=== PATIENT | male | born 1955 | race Caucasian/White ===

== ENCOUNTER 2020-04-19 20:43 | Inpatient (IN) | payer MEDICAID, SELFPAY ==
[~2020-04-19] VITALS: Ht 165.1 cm; Wt 88.9 kg
[2020-04-19 22:02] VITALS: Ht 165.1 cm; Wt 88.9 kg
--- NOTE | 2020-04-19 22:54 | NUR ---
PT CAME TO ED CO SOB AND COUGH X4 DAYS. PT SATURATING AT 78% ON ROOM AIR. PT PLACED ON 15L VIA NON REBREATHER. PT SATURATION INCREASED TO 94%. PT APPEAR LABORED. PT AMBULATED FROM LOBBY TO ORTHO WITH STEADY GAIT. DR. GALLEGOS MADE AWARE OF PT O2 SAT. NO S/S OF DISTRESS WHILE PT IS ON O2. PT RESTING ON GURNEY. PROVIDED URINAL FOR SAMPLE. WILL CONTINUE TO MONITOR.
--- NOTE | 2020-04-19 23:14 | NUR ---
LAB AT BEDSIDE FOR BLOOD DRAW
[2020-04-19 23:25] LABS: BASOPHIL % 0.5 % (0-2); RED CELL DISTRIBUTION WIDTH 13.6 % (11.5-14.5)
[2020-04-19 23:27] LABS: PLATELET COUNT 410 x10^3mcL (130-400)
[2020-04-19 23:32] LABS: UA SPECIFIC GRAVITY >=1.030 (1.005-1.035); microscopic required? YES; urine erythrocyte 2+ (NEGATIVE)
[2020-04-19 23:36] LABS: CALCIUM 8.7 mg/dL (8.5-10.1); CARBON DIOXIDE 23.9 mmol/L (21-32); CREATININE SERUM 2.1 mg/dL (0.7-1.3); POTASSIUM SERUM 4.4 mmol/L (3.5-5.1)
[2020-04-19 23:41] LABS: BILIRUBIN TOTAL 0.9 mg/dL (0.20-1.00); TOTAL PROTEIN, SERUM 7.6 g/dL (6.4-8.2)
[2020-04-19 23:48] LABS: ALBUMIN 2.2 g/dL (3.4-5.0)
[2020-04-20] VITALS (7 sets, daily range): BP systolic 142–167; BP diastolic 75–87
--- NOTE | 2020-04-20 | NUR ---
PT SITTING ON GURNEY IN POSITION OF COMFORT. ASSISTED PT UP IN BED. NO S/S OF DISTRESS. RESP E/U. WILL CONTINUE TO MONITOR.
[2020-04-20 00:08] LABS: C REACTIVE PROTEIN 26.6 mg/dL (<=0.9)
[2020-04-20] MEDS ORDERED: PROAIR HFA8.5 GM (00:54)
[2020-04-20] MEDS ORDERED: AZITHROMYCIN250 M1 (00:54)
[2020-04-20] MEDS ORDERED: PROMETHAZINE-D473 M1 (00:54)
[2020-04-20] MEDS ORDERED: BROMPHENIRAMIN473 M2 (00:55)
[2020-04-20] MEDS ORDERED: ATORVASTATIN CA40 M1 PO (00:55)
[2020-04-20] MEDS ORDERED: LOSARTAN POTAS100 M1 PO (00:55)
[2020-04-20] MEDS ORDERED: METFORMIN HCL1000 MG PO (00:55)
--- NOTE | 2020-04-20 01:50 | NUR ---
PT GIVEN ZOFRAN 4MG FOR VOMITING VERBAL ORDER FROM DR. GALLEGOS.
--- NOTE | 2020-04-20 02:04 | NUR ---
PT TAKEN TO CT SCAN, DAKSHA CONTINUE TO MONITOR.
--- NOTE | 2020-04-20 02:04 | NUR ---
REPORT GIVEN TO ISRAEL CONWAY TO ASSUME CARE OF PT
--- NOTE | 2020-04-20 02:05 | NUR ---
REPORT GIVEN TO ISRAEL CONWAY TO ASSUME CARE OF PT
--- NOTE | 2020-04-20 02:37 | NUR ---
ADMITTED PATIENT FROM ER TO THE FLOOR,PT CAME TO THE FLOOR VIA GUERNEY AND WAS ACCOMPANIED BY THE NURSE AND THE HOSPITAL PERSONNEL,PT WAS RECIEVED TO THE BED AND MADE COMFORTABLE IN BED WITH TELE ON IN NSR.ON INITAIL ASSESSMENT PATIENT IS AAO MALTESE SPEAKING ONLY BUT SPEAK LITTLE EGLISH,REG RESP NO SOB ON 15L NON REBREATHER MASK ON ARRIVAL TO THE FLOOR SAT 95%,HOB DIMINISHED TO IKE LOWER BASES,HOB,ABDO IS SOFT WITH ACTIVE BOWEL SOUNDS,PT CAME TO THE FLOOR WITH RICARDO WALKER,PT ORIENTED TO THE FLOOR,BATHROOM AND THE CALL LIGHT,BED WAS PUT IN THE LOW POSITION AND LOCKED,CALL LIGHT EASY REACHED AND WILL CONTINUE TO MONITOR. 0300 PT WAS REASSES BY THE RT AND WAS PUT ON 5L N/C WITH HUMIDIFIER WITH SAT 94%,PT RSETING AT THIS TIME,WILL CONTINUE TO MONITOR.
--- NOTE | 2020-04-20 02:46 | NUR ---
SPOKE WITH RT STS WILL GIVE BREATHING TREATMENT ON FLOOR
--- NOTE | 2020-04-20 02:46 | NUR ---
DR. GALLEGOS STS ITS OK TO TRANSPORT PT TO FLOOR W/OUT CT RESULTS.
--- NOTE | 2020-04-20 02:47 | NUR ---
PT TRANSFERRED TO ED ACCOMPANIED BY NURSE AND EMT. NO S/S OF DISTRESS. RESP E/U. RN AT BEDSIDE TO ASSUME CARE OF PT. IV SITES PATENT. NO S/S OF INFILTRATION .
[2020-04-20 02:57] LABS: CHOLESTEROL/HDL RATIO 2.9
--- NOTE | 2020-04-20 03:45 | NUR ---
call to dr munroe to notify flores of patient bp of 167/79 waiting to be call back.will kenna to monitor.
--- NOTE | 2020-04-20 03:59 | NUR ---
DR POLO CALLED SAYS ITS OKAY TO GIVE ITS PO BP MEDS IN AM AND ALSO START THE HEPARIN SQ IN AM,WILL ENDORSED IN AM,PT SLEEPING AT THIS TIME,WILL CONTINUE TO MONITOR.
--- NOTE | 2020-04-20 06:32 | NUR ---
BP 169/79 HYDARLAZINE 10 MG IV GIVEN ORDER AND WILL CONTINUE TO MONITOR,PT HAD AESTING NIGHT WILL CONTINUE TO MONITOR.
--- NOTE | 2020-04-20 07:25 | NUR ---
PT RESTING AT THIS TIME,V/S STABLE,HL SITE PATENT AND INTACT,KEPT CLEAN AND DRY TO TOUCH,CALL LIGHT EASY REACHED AND WILL CONTINUE TO MONITOR.
[2020-04-20 07:45] LABS: CALCIUM 7.9 mg/dL (8.5-10.1); CARBON DIOXIDE 22.1 mmol/L (21-32); CREATININE SERUM 1.8 mg/dL (0.7-1.3); PHOSPHOROUS 3.5 mg/dL (2.5-4.9); POTASSIUM SERUM 3.8 mmol/L (3.5-5.1)
[2020-04-20 08:05] LABS: C REACTIVE PROTEIN 24.7 mg/dL (<=0.9)
--- NOTE | 2020-04-20 09:18 | NUR ---
PT HAS BLOOD TINGE WHEN HE LOW HIS NOSE AND BLACK TARRY LOOSE STOOLS,OB,KEPT CLEAN AND DRY TOUCH AND WILL CONTINUE TO MONITOR.
--- NOTE | 2020-04-20 09:25 | NUR ---
DECADRON 6 MG IV GIVEN ORDER AND WILL CONTINUE TO MONITOR.
--- NOTE | 2020-04-20 10:04 | NUR ---
PT RESTING AT THIS TIE,WILL CONTINUE TO MONITOR.
[2020-04-20 10:25] LABS: BASOPHIL % 0.2 % (0-2); PLATELET COUNT 360 x10^3mcL (130-400); RED CELL DISTRIBUTION WIDTH 13.6 % (11.5-14.5)
--- NOTE | 2020-04-20 11:00 | NUR ---
RECIEVED PT FROM NIGHT NURSE AT 1100. PT A/O X4 WITH NO TRUJILLO OR DIZZINESS. TELE#20 CONNECTED TO PT, DENIES CP OR PRESSURE. NO SOB NOTED, PT FOUND ON 5LPM O2 NC WITH HUMIDIFIER. IV,S CDI AND PATENT. SAFETY PRECAUTIONS IN PLACE, CALL LIGHT WITHIN REACH, WILL MONITOR.
--- NOTE | 2020-04-20 11:45 | NUR ---
ASSUMED CARE OF PATIENT FROM ALEJANDRA. PATIENT IS AWAKE, ALERT, ORIENTED X4. PATIENT SITTING ON THE EDGE OF THE BED. O2 -5L NASAL CANULA WITH HUMIDIFIER. NO DISTRESS NOTED. PATIENT DENIES PAIN OR OTHER DISCOMFORT. CALL LIGHT WITHIN REACH. SAFETY PRECAUTIONS IN PLACE. WILL CONTINUE TO MONITOR PATIENT AND MAINTAIN SAFETY.
--- NOTE | 2020-04-20 14:00 | NUR ---
PT STABLE WITH NO C/O PAIN OR DISTRESS. CALL LIGHT WITHIN REACH, WILL MONITOR.
--- NOTE | 2020-04-20 14:15 | NUR ---
Discount pharmacy card and list to low cost medical clinics given to Naida WOOD and she will hand to patient.
--- NOTE | 2020-04-20 17:53 | NUR ---
PT RESTING IN BED WITH NO DISTRESS. A/O X4 WITH NO TRUJILLO OR DIZZINESS. TELE#20 CONNECTED TO PT, DENIES CP OR PRESSURE. NO SOB NOTED, PT ON 5LPM O2 NC WITH HUMIDIFIER. RAC/LAC IV'S CDI AND PATENT. SAFETY PRECAUTIONS IN PLACE, CALL LIGHT WITHIN REACH, WILL ENDORSE CARE TO NIGHT NURSE.
--- NOTE | 2020-04-20 19:54 | NUR ---
PT RECIEVED AAO REG RESP NO SOB ON 5L N/C SAT 95%,CRACKLES TO IKE LOWER BASES,ABDO IS SOFT WITH ACTIVE BOWEL SOUNDS,PT HAS A HL TO THE LT AC SITE PATENT AND INTACT,CALL LIGHT EASY REACHED AND WILL CONTINUE TO MONITOR.
[2020-04-21] VITALS (7 sets, daily range): BP systolic 136–159; BP diastolic 65–85
--- NOTE | 2020-04-21 00:44 | NUR ---
PT REASSESS ON OXYGEN OF 5L N/C SAT 100%,OXYGEN WAS REDUCED TO 3L N/C AND WILL REASSESS WITH TIME NO SOB,WILL CONTINUE TO MONITOR.
--- NOTE | 2020-04-21 01:03 | NUR ---
HYDRALAZINE 10 MG IV GIVEN ORDER WITH BP OF 159/81,SAT ON 3L WAS 100%,OXYGEN WAS REDUCED TO 2L SAT 94%,WILL CONTINUE TO MONITOR.
--- NOTE | 2020-04-21 02:29 | NUR ---
2L N/C SAT 97%,HOB,WILL CONITNUE TO MONITOR.
--- NOTE | 2020-04-21 06:31 | NUR ---
PT HAD A RESTING NIGHT NO CHNANGE AT THIS TIME,PT ON 2L N/C SAT 95%,CALL LIGHT EASY REACHED AND WILL CONITNUE TO MONITOR.
[2020-04-21 07:23] LABS: BASOPHIL % 0.1 % (0-2); PLATELET COUNT 432 x10^3mcL (130-400)
[2020-04-21 07:31] LABS: BILIRUBIN TOTAL 0.47 mg/dL (0.20-1.00); CARBON DIOXIDE 20.3 mmol/L (21-32); CREATININE SERUM 1.7 mg/dL (0.7-1.3); MAGNESIUM 2.5 mg/dL (1.8-2.4); PHOSPHOROUS 3.6 mg/dL (2.5-4.9); POTASSIUM SERUM 4.6 mmol/L (3.5-5.1); TOTAL PROTEIN, SERUM 6.9 g/dL (6.4-8.2)
[2020-04-21 07:32] LABS: ALBUMIN 1.9 g/dL (3.4-5.0)
--- NOTE | 2020-04-21 07:35 | NUR ---
RECEIVED PT RESTING IN BED. NO ACUTE DISTRESS. AAOX4. RESP EVEN AND UNLABORED ON 2L NC. DRY COUGH. DENIES CP OR PRESSURE. IV WITH NO REDNESS OR SWELLING. PT'S WALKER IN THE ROOM. AMBULATED TO BATHROOM WITHOUT DEVICE, GAIT SLOW BUT STEADY. DROPLET/CONTACT ISOLATION. BED IN LOW POSITION, CALL LIGHT WITHIN REACH. WILL CONTINUE TO MONITOR.
[2020-04-21 07:41] LABS: C REACTIVE PROTEIN 26.6 mg/dL (<=0.9)
--- NOTE | 2020-04-21 12:16 | NUR ---
PT RESTING IN BED. NO ACUTE DISTRESS. AAOX4. RESP EVEN AND UNLABORED ON 2L NC. NO C/O PAIN. IV WITH NO REDNESS OR SWELLING. DROPLET/CONTACT ISOLATION. CALL LIGHT WITHIN REACH. WILL CONTINUE TO MONITOR.
--- NOTE | 2020-04-21 18:29 | NUR ---
PT RESTING IN BED. NO ACUTE DISTRESS. RESP EVEN AND UNLABORED ON 2L NC. REPORTS BM THIS SHIFT. IV TO LAC LEAKING, DC'D WITH CATHETER INTACT. IV TO RAC WITH NO REDNESS OR SWELLING. BED IN LOW POSITION, CALL LIGHT WITHIN REACH. DROPLET/CONTACT ISOLATION. WILL ENDORSE TO ONCOMING SHIFT.
--- NOTE | 2020-04-21 20:00 | NUR ---
PATIENT RESTING IN BED, ALERT, ORIENTED X4, GRENADIAN SPEAKING. PRESENCE OF DRY COUGH, RESPIRATION EVEN AND UNLABORED, ON O2 2L PER NASAL CANNULA, ON CONTACT AND DROPLET PRECAUTION. NO GI DISCOMFORT, LBM 7/1. VOIDING FREELY WITHOUT DIFFICULTY, USES URINAL. USES WALKER. SKIN DRY AND INTACT. ON TELE #20. WILL CONTINUE TO MONITOR. WILL CONTINUE TO MONITOR.
[2020-04-22 05:19] VITALS: BP 149/95
--- NOTE | 2020-04-22 06:05 | NUR ---
PATIENT RESTING IN BED. RESPIRATION EVEN AND UNLABORED, ON OXYMIZER AT 10 L, ON AIRBORNE PRECAUTION. IV SITE NO SIGN OF INFILTRATION. ASSISTED WITH NEEDS. SAFETY OBSERVED. PLACED BED IN THE LOWEST POSITION. PLACED CALL LIGHT WITHIN REACH AT ALL TIMES.
[2020-04-22 07:24] LABS: BILIRUBIN TOTAL 0.3 mg/dL (0.20-1.00); C REACTIVE PROTEIN 8.8 mg/dL (<=0.9); CALCIUM 8.5 mg/dL (8.5-10.1); CARBON DIOXIDE 20.2 mmol/L (21-32); CREATININE SERUM 1.6 mg/dL (0.7-1.3); POTASSIUM SERUM 4.3 mmol/L (3.5-5.1); TOTAL PROTEIN, SERUM 6.8 g/dL (6.4-8.2)
[2020-04-22 07:30] LABS: ALBUMIN 1.9 g/dL (3.4-5.0)
--- NOTE | 2020-04-22 07:34 | NUR ---
RECEIVED PT IN NO ACUTE DISTRESS. RESTING IN BED. AAOX4. RESP EVEN AND UNLABORED ON 10L OXYMIZER. IV WITH NO REDNESS OR SWELLING. PT'S WALKER IN THE ROOM. DROPLET/CONTACT ISOLATION. BED IN LOW POSITION, CALL LIGHT WITHIN REACH. WILL CONTINUE TO MONITOR.
[2020-04-22 07:54] LABS: BASOPHIL % 0.9 % (0-2); PLATELET COUNT 486 x10^3mcL (130-400); RED CELL DISTRIBUTION WIDTH 13.6 % (11.5-14.5)
[2020-04-22 08:26] VITALS: BP 160/80
[2020-04-22 12:22] VITALS: BP 164/87
--- NOTE | 2020-04-22 12:52 | NUR ---
PT SITTING UP ON THE SIDE OF THE BED. NO ACUTE DISTRESS. RESP EVEN AND UNLABORED ON 10L OXYMIZER. IV WITH NO REDNESS OR SWELLING. IV DRESSING CHANGED, C/D/I. DROPLET/CONTACT ISOLATION. CALL LIGHT WITHIN REACH. WILL CONTINUE TO MONITOR.
[2020-04-22 17:11] VITALS: BP 150/81
--- NOTE | 2020-04-22 17:42 | NUR ---
DR. HUGGINS AWARE OF PT'S POSITIVE COVID-19 RESULTS. PT ON DROPLET/CONTACT ISOLATION. PT INSTRUCTED TO LAY ON HIS STOMACH. PT LAYING ON HIS STOMACH AT THIS TIME, O2 SAT 95-56% ON 10L OXYMIZER. PT ALSO INSTRUCTED TO USE INCENTIVE SPIROMETER 10X/HR WHILE AWAKE, PT RETURNED DEMONSTRATION. CALL LIGHT WITHIN REACH. WILL CONTINUE TO MONITOR.
--- NOTE | 2020-04-22 18:50 | NUR ---
PT RESTING IN BED. NO ACUTE DISTRESS. AAOX4. RESP EVEN AND UNLABORED ON 10L OXYMIZER. O2 SAT 96-98%. ENCOURAGED PT TO LAY PRONE 1 HOUR AFTER EATING DINNER, PT VERBALIZED UNDERSTANDING. REMINDED PT TO USE INCENTIVE SPIROMETER 10X/HR WHILE AWAKE. IV WITH NO REDNESS OR SWELLING. DROPLET/CONTACT ISOLATION. BED IN LOW POSITION, CALL LIGHT WITHIN REACH. WILL ENDORSE TO ONCOMING SHIFT.
[2020-04-22 19:30] VITALS: BP 162/107
--- NOTE | 2020-04-22 19:30 | NUR ---
RECIEVED PT FROM AM NURSE. PT AAOX4, ABLE TO FOLLOW COMMANDS AND MAKE NEEDS KNONW. TELE#20 READING SR, DENIES CP/PRESSURE AT THIS TIME. PALPABLE PULSES TO ALL EXTREMETIES. NO EDEMA NOTED. LUNG SOUNDS DIMINISHED, BREATHING EVEN AND UNLABORED. PT C/O SOB ON EXERTION AND DRY COUGH. PT ON 10L OXYMIZER, O2 SAT 92%. ABD SOFT AND NONDISTENDED, ACTIVE BS X4 QUAD. DENIES N/V/D. GENERALIZED WEAKNESS. AMBUALTORY WITH WALKER. IV TO RAC PATENT AND INTACT. SITE WNL. NO AUCTE DISTRESS NOTED. ENCOURAGE PT PRONE POSITION. PT STATES UNDERTANDING AND STATES HE IS BEING ON PRONE PROSITION. BED AT LOWEST SETTING. SIDE RAILS X2 UP. CALL LIGHT WITHING REACH. WILL CONT TO MONITOR.
[2020-04-22 23:00] VITALS: BP 156/82
--- NOTE | 2020-04-22 23:00 | NUR ---
PT BP 162/107, HYDRALAZINE IVP GIVEN PER DEC. BP RECHECKED. CURRENT BP 156/82. PT RESTING COMFORTABLY IN NO ACUTE DISTRESS. WILL CONT TO MONITOR.
--- NOTE | 2020-04-23 00:10 | NUR ---
PT RESTING COMFORTABLY IN BED, BREATHING EVEN AND UNLABORED ON 10L OXYMIZER. PT EASILY AROUSABLE TO VERBAL STIMULI. NO ACUTE DISTRESS NOTED. SAFETY PRECAUTIONS IN PLACE. CALL LIGHT WITHING REACH. WILL CONT TO MONITOR.
[2020-04-23 06:28] VITALS: BP 172/85
--- NOTE | 2020-04-23 06:35 | NUR ---
PT SLEPT AT INTERVALS THROUGHOUT THE NIGHT, BREATHING EVEN AND UNLABORED ON 10L OXYMIZER. O2 SAT 92%. PT BP 172/85, HYDRALAZINE IVP GIVEN. PT TOLERATED WELL. WILL REASSESS BP. NO OTHER SIGNIFICANT CHANE DURING SHIFT. ALL NEEDS ASSESSED AND ATTENDED TO. WILL CONT TO MONITOR.
[2020-04-23 06:56] VITALS: BP 157/67
--- NOTE | 2020-04-23 06:56 | NUR ---
CURRENT BP 157/67, NO ACUTE DISTRESS NOTED. SAFETY PRECAUTIONS IN PLACE. CALL LIGHT WITHING REACH. WILL CONT TO MONITOR AND ENDORSE CARE TO AM NURSE.
[2020-04-23 07:28] LABS: RED CELL DISTRIBUTION WIDTH 13.6 % (11.5-14.5)
[2020-04-23 08:02] LABS: C REACTIVE PROTEIN 5.6 mg/dL (<=0.9); CALCIUM 8.9 mg/dL (8.5-10.1); CARBON DIOXIDE 23.4 mmol/L (21-32); CREATININE SERUM 1.5 mg/dL (0.7-1.3); MAGNESIUM 2.1 mg/dL (1.8-2.4); PHOSPHOROUS 3.2 mg/dL (2.5-4.9); POTASSIUM SERUM 4.5 mmol/L (3.5-5.1)
[2020-04-23 08:31] LABS: BASOPHIL % 0 % (0-2)
[2020-04-23 08:32] LABS: PLATELET COUNT 502 x10^3mcL (130-400)
[2020-04-23 09:38] VITALS: BP 157/84
--- NOTE | 2020-04-23 09:55 | NUR ---
RECEIVED PT FROM NIGHT NURSE. HE APPEARS COMFORTABLE AND IN NO RESPIRATORY DISTRESS. 98% ON 10L OXYMIZER. SAFETY PRECAUTIONS IN PLACE. WILL CONTINUE TO MONITOR.
[2020-04-23 12:29] VITALS: BP 151/78
[2020-04-23 17:20] VITALS: BP 123/74
--- NOTE | 2020-04-23 17:36 | NUR ---
PATROL SERGEANT SUGGESTED TITRATING DOWN 02 LEVEL TO MAINTAIN ABOVE 93%. DECREASED O2 FROM 10L TO 8L AND PT DID NOT TOLERATE WELL. DESAT TO 89%. RESUMED O2 LEVEL AT 10L/MIN.
--- NOTE | 2020-04-23 19:41 | NUR ---
PT HAS MOSTLY STAYED IN BED THROUGHOUT THE DAY SLEEPING, BUT IS AMBULATORY WITH A WALKER. VS HAVE REMAINED STABLE. STILL PRESENTS WITH DRY COUGH AND SAO2 93% ON 10L OXYMIZER. PER PREVIOUS SHIFT BP WAS HIGH, HAS REMAINED <160 SBP, CURRENTLY 123/74. PRN HYDRALAZINE NOT GIVEN. NO ACUTE DISTRESS NOTED. SAFETY PRECAUTIONS IN PLACE. ENDORSED TO NIGHT NURSE.
[2020-04-23 20:10] VITALS: BP 145/83
--- NOTE | 2020-04-23 20:30 | NUR ---
PT ENSORSED. AXOX4 NO S/S OF DISTRES OR DISCOMFORT. PT ON 10 L OXYMIZER BREATHING EVEN AND UNLABORED. PT STATES HE HAS SOB WITH EXERTION. SPO2 95% IV PATENT C/D/I N INFILTRATION. SKIN WARM AND DRY. TELE 2 SR NO CP OR PALIPITATIONS. BOWEL SOUND PRESENT, SOFT ROUND NON TENDER. MODERATE PEDAL AND RADIAL PULSES. DENIES PAIN. CALM AND COOPERATIVE.
--- NOTE | 2020-04-24 00:56 | NUR ---
PT RESTING EYES CLOSED. NO S/S OF DISTRESS OR DISCOMFORT. PT BREATHING EVEN ON 10L OXYMIER SPO2 93% RAILS UP X2, BED IN LOW POSITION AND CALL LIGHT IS WITHIN REACH. TELE 20 SR.
--- NOTE | 2020-04-24 06:48 | NUR ---
PT RESTING. EYES OPEN. NO S/S OF DISTRESS OR DISCOMFORT. PATIENT BREATHING EVEN ON10L OXYMIZER. SPO2 95% PT SLEEPING PRONE POSITION THROUGH THE NIGHT. NO C/O CP OR PALPITATIONS. V/S STABLE. IV PATENT C/D/I NO INFILTRATION. SKIN WARM AND DRY.
[2020-04-24 07:58] LABS: C REACTIVE PROTEIN 7.7 mg/dL (<=0.9); CALCIUM 8.9 mg/dL (8.5-10.1); CARBON DIOXIDE 22.8 mmol/L (21-32); CREATININE SERUM 1.5 mg/dL (0.7-1.3); POTASSIUM SERUM 4.2 mmol/L (3.5-5.1)
[2020-04-24 08:56] LABS: BASOPHIL % 0 % (0-2); RED CELL DISTRIBUTION WIDTH 13.9 % (11.5-14.5)
[2020-04-24 09:24] VITALS: BP 176/92
--- NOTE | 2020-04-24 09:37 | NUR ---
FOUND PT SITTING ON SIDE OF BED. SAO2 HAD DECREASED TO 78%. HE HAD JUST RETURNED FROM THE BATHROOM AND WAS ALSO EATING. HE WAS INSTRUCTED TO RETURN TO LOW HUBER'S AND TAKE DEEP BREATHS. HE RETURNED TO 95% AND STILL ON 10L OXYMIZER. PT HAS A PRODUCTIVE COUGH. SAFETY PRECAUTIONS IN PLACE. INSTRUCTED TO USE CALL LIGHT AT BEDSIDE FOR ANY NEEDS. WILL CONTINUE TO MONITOR.
[2020-04-24 10:17] LABS: PLATELET COUNT 505 x10^3mcL (130-400)
[2020-04-24 13:44] VITALS: BP 135/68
--- NOTE | 2020-04-24 13:55 | NUR ---
PT WAS HYPERTENSIVE AT 176/92. GAVE HYDRALAZINE ORDERED PRN @1121. WITHIN 20 MIN BP CAME DOWN TO 157/72. NOW UNDER CONTROL AT 135/68. WILL CONTINUE TO MONITOR.
--- NOTE | 2020-04-24 18:31 | NUR ---
PT WAS TITRATED DOWN TO 8L ON OXYMIZER BY PIG STICKER. PT STILL HAS A POOR TOLERANCE FOR ACTIVITY, WITH DESATS TO 78% ON EXERTION. DID NOT TITRATE FURTHER DURING SHIFT. PT IS AMBULATORY WITH WALKER WITH SOME MILD WEAKNESS. USES URINAL TO VOID. CURRENT BP IS 139/80. DENIES PAIN AND IS RESTING CONFORTABLY. WILL ENDORSE TO NIGHT NURSE.
[2020-04-24 18:33] VITALS: BP 139/80
--- NOTE | 2020-04-24 19:45 | NUR ---
RECEIEVED PT FROM DAY NURSE. AXOX4. 8L OXYMIZER BREATHING EVENLY SPO2 96% PT C/O SOB WITH AMBULATION BUT ABLE TO CATCH HIS BREATH. PT ENCOURAGED TO USE THE IS. RAC IV C/D/I NO INFILTRATION. TELE # 20 SR. SKIN WARM DRY AND INTACT. MODERATE RADIAL AND PEDAL PULSES. VOIDS FREELY, BRP. PT IS CALM AND COOPERATIVE WITH CARE. WILL CONTINUE TO MONITOR PATIENT AND OFFER SUPPORT.
[2020-04-24 20:55] VITALS: BP 137/76
--- NOTE | 2020-04-25 00:45 | NUR ---
PT RESTING, EYES CLOSED, BREATHING EVEN, UNLABORED ON 8 L OXYMIZER SPO2 98% TELE 30, NSR AT THIS TIME. BED IN LOW POSITION, RAILS UPX2, CALL LIGHT WITHIN REACH.
[2020-04-25 05:55] VITALS: BP 155/82
--- NOTE | 2020-04-25 06:29 | NUR ---
PT RESTING EYES CLOSED. BREATHING EVEN AND UNLABORED ON 8L OXYMIZER SPO2 98% PRONE POSITION. NO S/S OF DISTRESS OR DISCOMFORT. BS 103. VOIDING FREELY IN URINAL. AMBULATES TO RESTROOM, C/O SOB BUT ABLE TO RECOVER. BED IN LOW POSITION, RAILS UPX2 AND CALL LIGHT WITHIN REACH.
[2020-04-25 09:18] LABS: BILIRUBIN TOTAL 0.4 mg/dL (0.20-1.00); CALCIUM 8.9 mg/dL (8.5-10.1); CARBON DIOXIDE 24.8 mmol/L (21-32); CREATININE SERUM 1.5 mg/dL (0.7-1.3); MAGNESIUM 2.2 mg/dL (1.8-2.4); PHOSPHOROUS 4.6 mg/dL (2.5-4.9); POTASSIUM SERUM 4.4 mmol/L (3.5-5.1); TOTAL PROTEIN, SERUM 6.3 g/dL (6.4-8.2)
[2020-04-25 09:22] LABS: ALBUMIN 1.9 g/dL (3.4-5.0)
[2020-04-25 09:31] VITALS: BP 142/65
--- NOTE | 2020-04-25 09:32 | NUR ---
RECEIVED PT FROM NIGHT NURSE. FOUND LAYING IN BED, APPEARS COMFORTABLE. AAOX4. DENIES PAIN. PT SOB WITH LS DIMINISHED BILAT. TACHYPNEIC AND SHALLOW BREATH. DRY COUGH PRESENT WITH DEEPER BREATHS. NO ACUTE RESPIRATORY DISTRESS. INSTRUCTED TO USE CALL LIGHT FOR ANY NEEDS. SAFETY PRECAUTIONS IN PLACE. WILL CONTINUE TO MONITOR.
[2020-04-25 10:35] LABS: BASOPHIL % 0 % (0-2); PLATELET COUNT 478 x10^3mcL (130-400); RED CELL DISTRIBUTION WIDTH 13.8 % (11.5-14.5)
[2020-04-25 13:51] VITALS: BP 130/64
[2020-04-25 17:20] VITALS: BP 146/89
--- NOTE | 2020-04-25 19:16 | NUR ---
PT OBSERVED RESTING COMFORTABLY IN BED, DENIES PAIN. STILL ON 8L OXYMIZER SAO2 96%. PT AMBULATORY BUT USES URINAL MOSTLY FOR VOIDING. USES WALKER. APPETITE HAS INCREASED THIS SHIFT AND HE IS TOLERATING CURRENT DIET WELL. SAFETY PRECAUTIONS IN PLACE. CALL LIGHT AT BEDSIDE. WILL ENDORSE TO NIGHT NURSE.
--- NOTE | 2020-04-25 19:45 | NUR ---
PT ENDORSED BY DAY RN. AXOX4. BREATHING EVEN AND UNLABORED 8L OXYMIZER SPO2 96% NO S/S OF DISTRESS OR DISCOMFORT. LUNGS ARE CTA. GENERALIZED WEAKNESS. RAC 20G SL NO S/S OF IFILTRATION. TELE 20 SR. NO CP. SKIM WARM AND DRY. MODERATE PEDAL AND RADIAL PULSES. VOIDS FREELY IN URINAL. COVID 19+ ISO CONTACT AND DROPLET PRECAUTIONS. BED IN LOW POSITION, RAILS UP X2. CALL LIGHT WITHIN REACH.
[2020-04-25 21:29] VITALS: BP 145/81
--- NOTE | 2020-04-26 01:02 | NUR ---
PT RESTING, EYES OPEN. BREATHING EVEN, UNLABORED 8L OXYMIZER 95% SPO2. NO S/S OF DISTRESS OR DISCOMFORT. TELE 20 NSR. BED IN LOW POSITION, SIDE RAILS UP X2. CALL LIGHT WITHIN REACH.
[2020-04-26 05:59] VITALS: BP 150/72
--- NOTE | 2020-04-26 06:18 | NUR ---
PT RESTING WITH EYES CLOSED. NO S/S OF DISTRESS OR DISCOMFORT. BREATHING EVEN ON 8L OXYMIZER SPO2 96%. IV PATENT, C/D/I NO S/S OF INFILTRATION. TELE 20 NSR NO CP. VOIDING FREELY. BED IN LOW POSITION. SIDE RAILS UPX2, CALL LIGHT WITHIN REACH. DENIES PAIN.
--- NOTE | 2020-04-26 08:00 | NUR ---
PT RECEIVED FROM PM NURSE. PT AWAKE AND RESTING COMFORTABLY AT THIS TIME. NO FACIAL DISTRESS OR SOB NOTED. MONGOLIAN SPEAKER. PT IS A/OX4. LUNG SOUNDS CTA BUT DIMINISHED BLL. BREATHING E/U ON 8L OXYMIZER. TELE #20. NSR. DENIES CP/PRESSURE. PULSES EVEN AND PALPABLE. NO EDEMA NOTED. ACTIVE BS X4. ABD SOFT AND ROUND. LBM 04/24/20. VOIDS FREELY. BRP. GENERALIZED WEAKNESS NOTED BUT IS AMBULATORY. SKIN INTACT. NO C/O PAIN AT THIS TIME. IV ON RAC. SL. INTACT AND PATENT. NO SIGNS OF INFILTRATION. BED AT THE LOWEST POSITION. CALL LIGHT WITHIN REACH. WILL CONTINUE TO MONITOR.
[2020-04-26 09:04] VITALS: BP 164/87
[2020-04-26 10:42] LABS: BASOPHIL % 0.1 % (0-2); RED CELL DISTRIBUTION WIDTH 13.8 % (11.5-14.5)
[2020-04-26 10:45] LABS: PLATELET COUNT 481 x10^3mcL (130-400)
[2020-04-26 11:25] VITALS: BP 164/87
[2020-04-26 11:58] LABS: CALCIUM 8.8 mg/dL (8.5-10.1); CARBON DIOXIDE 21.8 mmol/L (21-32); CREATININE SERUM 1.5 mg/dL (0.7-1.3); MAGNESIUM 2.1 mg/dL (1.8-2.4); PHOSPHOROUS 5.2 mg/dL (2.5-4.9); POTASSIUM SERUM 5.5 mmol/L (3.5-5.1)
[2020-04-26 13:19] VITALS: BP 142/77
--- NOTE | 2020-04-26 15:41 | NUR ---
1. Recommend continue CCHO diet as tolerate 2. Recommend glucerna TID for additional 660kcal and 30g protein. 3. Recommend encourage PO intake
--- NOTE | 2020-04-26 15:41 | NUR ---
Initial Nutrition Assessment: 217B CINDY HANNON 64M MR Dx: viral PNA, suspected COVID PMHx: DM, HTN, and hyperlipidemia PSHx: none noted Labs: (04/25) BUN 34H, Cr 1.5H, AST 53H, ALT 79H, H/H 12.7/38L Meds: Decadron, Lantus, Lipitor, Lovenox, Norvasc PRN meds: D50%, Humulin, Hydralazine, Tylenol, Ventolin, Zofran Diet: [facility] PO intake since admission: 30-80% x 16 meals with average PO intake of 56% Ht: 165.1cm/65in Wt: 88.904kg/196lbs BMI: 32.6 Bed scale: unknown IBW: 61.82kg/136lbs %IBW: 143.82% ABW: 69 UBW: unknown Age: 64 Food Allergies: unknown Edema: none noted Last BM: 04/24 Skin: intact Gio: 20 Per H and P (04/20), This patient is a 64-year-old Male with a history of diabetes, hypertension, and hyperlipidemia came in to the emergency department with c/o fever, cough, headache, shortness of breath for past 4 days. Patient mentioned his cough is nonproductive and has chest discomfort when he coughs. When patient came in to the ER, he was Hypoxic with O2sat 78% on room air. Placed on 15L via non- rebreather and his saturation improved to 97%. No known ill contacts or any recent travel. Patient denies chills, sore throat, abdominal pain, nausea, vomiting, diarrhea, or other medical complaints. Patient is complaint with his medications for HTN and DM. Pt was admitted with dx: acute respiratory failure and sepsis, Vasomotor nephropathy, h/o HLD, DM, HTN, milk malnutrition, DVT RD Note (04/26) Per progress note (04/26), pt was being weaned off oxygen per pulmonology recommendation. Pt was in isolation. Per pt's primary RN, pt had fair appetite and finished 100% of her breakfast today. RN also denied GI distress and chewing/swallowing difficulty. Pt had average PO intake of 56% since admission. Pt's diet provided 958kcal and 58g protein meeting 46% of estimated kcal needs and 56% of estimated protein needs. Problem with: N/V/D/C: no per RN Problems with: Chewing: Swallowing: No per RN Current appetite: good per RN Recent wt change: unknown %wt change: unknown Height: unknown Vitamin/Supplement use: unknown Special diet at home: unknown Physical activity: unknown Nutrition education given (specify specific nutrition education and handout given): written education "Type 2 Diabetes Nutrition Therapy" in Sami was provided to pt via RN. Food-drug interactions? Education given? Written education "vitamin K and medication" was provided to pt via RN. Estimated Nutritional Needs Based on adjusted body weight (69kg) Energy: 6049-0659 kcal/day (30-35 kcal/kg for sepsis) Protein: 103-138 g/day (1.5-2 g/kg for sepsis) Fluid: 2321-7497 mL/day (1 mL/kcal) Nutrition Diagnosis: 1. Inadequate energy and protein intake r/t poor PO intake a/e/b pt average PO intake of 56% meeting 46% of estimated kcal needs and 56% of estimated protein needs. 2. Increased energy and protein needs r/t hypermetabolic state a/e/b pt has sepsis. Intervention 1. Recommend continue CCHO diet as tolerate 2. Recommend glucerna TID for additional 660kcal and 30g protein. 3. Recommend encourage PO intake Monitor/Evaluate Goal: PO intake at least 75% of estimated needs Monitor: PO intake, Labs, GI function, Body weight F/U in 3-5 days as moderate risk 04/29-
[2020-04-26 18:31] VITALS: BP 132/70
--- NOTE | 2020-04-26 19:25 | NUR ---
ENDORSED CARE TO PM NURSE FOR CONTINUTY OF CARE. ALL QUESTIONS/CONCERNS ADDRESSED
--- NOTE | 2020-04-26 19:53 | NUR ---
PT RESTING IN BED, ALERT AND ORIENTED, DENIES HEADACHE OR DIZZINESS, MOSTLY MACEDONIAN SPEAKING, BREATHING EVEN AND UNLABORED WHILE RESTING IN BED, LUNG SOUNDS DIMINISHED, ON OXYMIZER 8L, SOB ON EXERTION, ON TELE#20 NSR, DENIES CHEST PAIN, SL, ABD SOFT AND FLAT WITH ACTIVE BS, NO BM AT THIS TIME, VOIDING FREELY, NO DISTRESS NOTED, WILL KEEP TO MONITOR.
[2020-04-26 22:01] VITALS: BP 152/86
--- NOTE | 2020-04-27 05:45 | NUR ---
PT ASLEEP BUT EASILY AROUSABLE, SLEPT MOST OF NIGHT, MORNING BLODD SUGAR:175 MG/DL WITH RISS 3 UNITS, ON OXYMIZER 8L TO MAINTAIN SPO2 > 90%, NO DISTRESS NOTED, WILL KEEP TO MONITOR.
[2020-04-27 06:06] VITALS: BP 151/67
--- NOTE | 2020-04-27 07:10 | NUR ---
RECEIVED REPORT FROM NIGHT RN Pt LYING IN BED A&O X4 SUDANESE SPEAKING DENIES AND PAIN OR SOB AT THIS TIME. ON TELE 20 DENIES ANY CHEST PAIN OR PRESSURE. ON 8L OXYMIZER AT 95% PT TOLERATING WELL. WALKER AT BEDSIDE Pt AMBULATES WELL DENIES FATIGUE. IV ON RAC C/D/I. ALL NEEDS ATTENDED TO AT THIS TIME. BED IN LOWEST POSITION CALL LIGHT WITHIN REACH. WILL CONTINUE TO MONITOR.
[2020-04-27 08:41] VITALS: BP 141/77
[2020-04-27 09:33] LABS: BASOPHIL % 0 % (0-2); PLATELET COUNT 491 x10^3mcL (130-400); RED CELL DISTRIBUTION WIDTH 13.6 % (11.5-14.5)
[2020-04-27 09:35] LABS: C REACTIVE PROTEIN 3.6 mg/dL (<=0.9); CALCIUM 8.7 mg/dL (8.5-10.1); CREATININE SERUM 1.5 mg/dL (0.7-1.3); POTASSIUM SERUM 4.3 mmol/L (3.5-5.1)
--- NOTE | 2020-04-27 10:45 | NUR ---
SP02 88% Pt SITTING UP IN BED DENIES ANY SOB CHEST RISE EQUAL AND UNLABORED . ADBISED TO LAY PRONE INCREASED OXYMIZER TO 12L PER CHARGE NURSE Pt SP02 90% TOLAERATING WELL. NO S/S OF ANY SOB. ALL NEEDS ATTENDED TO
[2020-04-27 11:55] VITALS: BP 145/82
--- NOTE | 2020-04-27 12:30 | NUR ---
Pt ALFONZO PRONE 02 AT 97 % DECREASED OXYMIZER TO 10L Pt TOLERATING WELL DENIES ANY SOB AT THIS TIME. ALL NEEDS ATTENDED TO. WILL CONTINUE TO MONITOR.
[2020-04-27 15:48] VITALS: BP 131/65
--- NOTE | 2020-04-27 16:30 | NUR ---
02 DECREASED TO 88% Pt PRONED 02 WENT TO 90% PT REMAINS ON 10L OXYMIZER DENIES ANY SOB AT THIS TIME. CHEST RISE EQUAL AND UNLABORED. ALL NEEDS ATTENDED TO. BED INLOWEST POSITION CALL LIGHT WITHIN REACH. WILL CONTINUE TO MONITOR.
--- NOTE | 2020-04-27 18:46 | NUR ---
Pt LYIHN IN BED PRONE ON 10L OXYMIZER 02 92% DENIES ANY SOB CHEST RISE EQUAL AND UNLABORED. DENIES ANY PAINAT THIS TIME. NO S/S OF ANY ACUTE DISTRESS. ALL NEEDS ATTENDED TO. SAFETY PRECAUTIONS IN PLACE. WILL ENDORSE CARE TO NIGHT RN
--- NOTE | 2020-04-27 20:03 | NUR ---
PT RESTING IN BED, ALERT AND ORIENTED, DENIES HEADACHE OR DIZZINESS, MOSTLY AMHARIC SPEAKING, BREATHING EVEN AND UNLABORED WHILE RESTING IN BED, LUNG SOUNDS DIMINISHED, ON OXYMIZER 10L, SOB ON EXERTION, ON TELE#20 NSR, DENIES CHEST PAIN, SL, ABD SOFT AND FLAT WITH ACTIVE BS, NO BM AT THIS TIME, VOIDING FREELY, NO DISTRESS NOTED, WILL KEEP TO MONITOR.
[2020-04-27 21:37] VITALS: BP 136/82
[2020-04-28 05:46] VITALS: BP 158/83
--- NOTE | 2020-04-28 05:55 | NUR ---
PT AWAKE AND RESTING IN BED, SLEPT MOST OF NIGHT, MORNING BLOOD SUGAR: 126 MG/DL WITH NO RISS, PT ABLE TO MAINTAIN SPO2 ABOVE 90% WITH OXYMIZER 10 L, PT SELF PRONE AT TIMES, NO DISTRESS NOTED, WILL KEEP TO MONITOR.
[2020-04-28 06:51] LABS: RED CELL DISTRIBUTION WIDTH 13.3 % (11.5-14.5)
[2020-04-28 06:59] LABS: BASOPHIL % 0 % (0-2); PLATELET COUNT 451 x10^3mcL (130-400)
--- NOTE | 2020-04-28 07:00 | NUR ---
RECEIVED REPORT FROM ANITA RN Pt SITTING UP IN BED EATING BREAKFAST TOLERATING DIET WELL. Pt REMAINS ON OWYMIZER 10L AT 91% DENIES ANY SOB CHEST RISE EQUAL AND UNLABORED. IV PATENT AND INTACT. TELE MONITOR AND CONTINUOUS PULSE OX. ALL NEEDS ATTENDED TO. SAFETY PRECAUTIONS IN PLACE. WILL CONTINUE TO MONITOR.
[2020-04-28 07:08] LABS: C REACTIVE PROTEIN 2.8 mg/dL (<=0.9); CALCIUM 8.9 mg/dL (8.5-10.1); CARBON DIOXIDE 30.6 mmol/L (21-32); CREATININE SERUM 1.5 mg/dL (0.7-1.3); MAGNESIUM 2.3 mg/dL (1.8-2.4); POTASSIUM SERUM 4.8 mmol/L (3.5-5.1)
--- NOTE | 2020-04-28 07:14 | NUR ---
REPORT GIVEN TO MIGUEL-RN, ALL QUESTIONS ANSWERED AND CONCERNS ADDRESSED.
[2020-04-28 09:59] VITALS: BP 147/78
--- NOTE | 2020-04-28 11:18 | NUR ---
Pt LYING PRONE DECREASED OXYMIZER TO 9L SP02 94% Pt TOLERATING WILL CONTINUE TO WEAN TOLERATED. ALL NEEDS ATTENDED TO. SAFETY PRECAUTIONS IN PLACE. WILL CONTINUE TO MONITOR.
[2020-04-28 14:02] VITALS: BP 132/75
--- NOTE | 2020-04-28 14:49 | NUR ---
Pt LYING IN PRONE POSITON DENIES ANY SOB TOLERATING 8L ON THE OXYMIZER CHEST RISE EQUAL AND UNLABORED. ALL NEEDS ATTENDED TO. BED IN LOWEST POSITION CALL LIGHT WITHIN REACH. WILL CONTINUE TO MONITOR.
[2020-04-28 17:20] VITALS: BP 135/77
--- NOTE | 2020-04-28 18:38 | NUR ---
Pt LYING IN BED ON 8L OXYMIZER TOLERATING WELL DENIES ANY SOB. Pt REMAINS TO PRONE NEEDED. ALL QUESTIONS AND CONCERNS ADDRESSED. BED IN LOWEST POSITION CALL LIGHT WITHIN REACH. WILL ENDORSE CARE TO NIGHT RN.
--- NOTE | 2020-04-28 20:00 | NUR ---
PT IS A/O X4. MONGOLIAN SPEAKER. SPEECH IS CLEAR. ON TELEMONITOR 20. SINUS RHYTHM. PULSES PALPABLE AND NO EDEMA NOTED. BILATERAL DIMINISHED BASES. ON OXYMIZER 8 L. BOWEL SOUNDS ACTIVE X4. LAST BM WAS 04/28/20. VOIDS FREELY IN URINAL AT BEDSIDE. AMBULATES WITH WALKER. DENIES PAIN AT THIS TIME. ON SALINE LOCK. IV RAC CDI. DENIES PAIN AT SITE. ON DROPLET PRECAUTIONS. PT DENIES SOB, CHEST PAIN, CHEST PRESSURE, COUGH, DIZZINESS AND/OR N/V. NOTIFIED PT TO USE CALL LIGHT IF IN NEED OF ASSISATNCE. BED IN LOWEST AND LOCKED POSITION. CALL LIGHT WITHIN REACH. ALL NEEDS MET AT THIS TIME.
--- NOTE | 2020-04-28 22:00 | NUR ---
PTS BLOOD SUGAR WAS 313 MG/DL. PT PROVIDED WITH REG 12 U INSULIN. PT ALSO PROVIDED WITH THEIR NIGHTLY DOSE OF LANTUS 12 U. BED IN LOWEST AND LOCKED POSITION. CALL LIGHT WITHIN REACH. WILL CONTINUE TO MONITOR.
[2020-04-28 22:13] VITALS: BP 147/79
--- NOTE | 2020-04-29 02:00 | NUR ---
PT SLEEPING IN BED WITH EYES CLOSED. IN PRONE POSITION. NO SIGNS OF RESP DISTRESS. NO FACIAL GRIMACING. BED IN LOWEST AND LOCKED POSITION. CALL LIGHT WITHIN REACH. WILL CONTINUE TO MONITOR.
--- NOTE | 2020-04-29 06:00 | NUR ---
PTS BS WAS 149 MG/DL. NO COVERAGE AT THIS TIME. PT IS STABLE AT THIS TIME. CALL LIGHT WITHIN REACH.
--- NOTE | 2020-04-29 06:20 | NUR ---
ENDORSED CARE TO ASSOCIATE ATTORNEY TO ENDORSE CARE TO DAYSHIFT NURSE
[2020-04-29 06:26] VITALS: BP 140/72
--- NOTE | 2020-04-29 07:00 | NUR ---
RECEIVED REPORT FROM NIGHT RN Pt LYING PRONE A&O X4 ON 6L OXYMIZER @88% ENCOURAGED TO TAKE DEEP BREATH. Pt DENIES ANY SOB AT THIS TIME CHEST RISE EQUAL AND UNLABORED. IV ON RAC PATENT AND INTACT NO REDNESS OR EDEMA. Pt DENIES ANY PAIN. ON TELE MONITOR DENIES ANY CHEST DISCOMFORT. ALL NEEDS ATTENDED TO AT THIS ITME. BED IN LOWEST POSITION CALL LIGHT AND WALKER WITHIN REACH. WILL CONTINUE TO MONITOR
[2020-04-29 08:19] LABS: BASOPHIL % 0.2 % (0-2); RED CELL DISTRIBUTION WIDTH 13.2 % (11.5-14.5)
[2020-04-29 08:28] LABS: PLATELET COUNT 423 x10^3mcL (130-400)
[2020-04-29 08:48] LABS: CALCIUM 8.9 mg/dL (8.5-10.1); CARBON DIOXIDE 27.7 mmol/L (21-32); CREATININE SERUM 1.4 mg/dL (0.7-1.3); POTASSIUM SERUM 4.6 mmol/L (3.5-5.1)
--- NOTE | 2020-04-29 09:56 | NUR ---
RECEIVED TELEPHONE ORDER FROM DR EDGAR FOR REMDESIVIR 200 MG TODAY THEN 100MG DAILY FOR 4 DAYS AND 2 UNITS OF CONVALSCENT PLASMA. READ BACK AND CONFIRMED ORDER WILL CARRY OUT
[2020-04-29 10:06] VITALS: BP 133/73
--- NOTE | 2020-04-29 11:42 | NUR ---
Pt LYING IN BED REMAINS ON 6L OXYMIZER TOLERATING WELL 94% SP02. OBTAINED BLOOD SUGAR INSULIN NEEDED. ALL QUESTIONS AND CONCERNS ADDRESSED AT THIS TIME. ALL NEEDS ATTENDED TO. BED IN LOWEST POSITION CALL LIGHT WITHIN REACH. WILL CONTINUE TO MONITOR.
[2020-04-29 13:30] VITALS: BP 147/69
--- NOTE | 2020-04-29 14:32 | NUR ---
NUNU RN HELPED TRANSLATE PLASMA EDUCATION Pt VERBALIZED UNDERSTANDING STATING "I WANT TO TALK TO MY FAMILY AND WILL HAVE THEM CALL YOU FOR MORE EXPLANATION" ALL QUESTIONS AND CONCERNS ADDRESSED. SPOKE WITH CURRY (SON) HE STATED HE WANTED TO WAIT ON THE PLASMA, ALL QUESTIONS AND CONCERNS ADDRESSED. ASHWIN Mcfadden MADE AWARE AND DR EDGAR MADE AWARE NO NEW ORDERS AT THIS TIME.
[2020-04-29 16:00] VITALS: BP 159/85
--- NOTE | 2020-04-29 16:00 | NUR ---
PTS BLOOD SUGAR WAS 149 MG/DL. DID NOT RECIEVE ANY COVERAGE. PT IS STABLE AT THIS TIME.
--- NOTE | 2020-04-29 16:10 | NUR ---
1ST BAG OF REMDESIVIR HUNG Pt TOLERATED WELL NO ADVERSEREACTIONS NOTED.
--- NOTE | 2020-04-29 18:30 | NUR ---
Pt SITTING UP IN BED ON 4L OXYMIZER TOLERATING WELL CHEST RISE EQUAL AND UNLABORED. DENIES ANY SOB. ON TELE MONITOR AND CONTINUOUS PULSE OX. ALL NEEDS ATTENDED TO SAFETY PRECAUTIONS IN PLACE. WILL ENDORSE CARE TO NIGHT RN.
--- NOTE | 2020-04-29 19:45 | NUR ---
PT IS IN BED LAYING WITH EYES OPEN. A/O X4. SPEECH IS CLEAR. KAZAKH SPEAKER. PT IS ON TELEMONITOR 20. NSR. PULSES PALPABLE AND NO EDEMA NOTED. DIMINISHED BILATERAL LUNG BASES. ON 4 L OXYMIZER. BOWEL SOUNDS ACTIVE X4. LAST BM 04/28/20. VOIDS AT URINAL BEDSIDE. WALKER AT BASELINE. NO PAIN NOTED AT THIS TIME. DENIES CHEST PAIN, PRESSURE, SOB, N/V AND DIZZINESS. ON SALINE LOCK RAC. BED IN LOWEST AND LOCKED POSITION. CALL LIGHT WITHIN REACH. WILL CONTINUE TO MONITOR.
--- NOTE | 2020-04-29 21:50 | NUR ---
PTS BS WAS 317 MG/DL. PT WAS GIVEN COVERAGE OF 12 U OF REG INSULIN. PT WAS ALSO GIVEN DAILY DOSE OF LANTUS 12 U.
[2020-04-29 23:19] VITALS: BP 147/66
--- NOTE | 2020-04-30 02:45 | NUR ---
PT WAS SITTING UP AT BEDSIDE ON HIS TELEPHONE. PROVIDED PT WITH A DIET SODA PER REQUEST. BED IN LOWEST AND LOCKED POSITION. CALL LIGHT WITHIN REACH. WILL CONTINUE TO MONITOR.
[2020-04-30 05:51] VITALS: BP 139/66
--- NOTE | 2020-04-30 06:10 | NUR ---
PTS BLOOD SUGAR WAS 72 MG/DL. NO COVERAGE AT THIS TIME. PT IS STABLE.
--- NOTE | 2020-04-30 07:36 | NUR ---
ENDORSED CARE TO DAYSHIFT NURSE.
--- NOTE | 2020-04-30 08:40 | NUR ---
PT SEEN AT BEDSIDE. PT AOX4, RESP E/U ON 4L OXYMIZER, O2 SAT: 96%, DENIES SOB OR COUGH, NO RESP DISTRESS NOTED. ON TELE 20 SHOWING SR, HR: 72, S1 AND S2 WNL, DENIES CHEST PAIN. IV SALINE LOCK TO RAC W/ NO ERYTHEMA/EDEMA. BED IN LOWEST POSITION AND CALL LIGHT WITHIN REACH. DROPLET PRECAUTIONS MAINTAINED. WILL CONTINUE TO MONITOR.
[2020-04-30 08:49] VITALS: BP 144/81
[2020-04-30 09:24] LABS: BILIRUBIN DIRECT 0.08 mg/dL (0.0-0.2); BILIRUBIN TOTAL 0.25 mg/dL (0.20-1.00); TOTAL PROTEIN, SERUM 6.6 g/dL (6.4-8.2)
[2020-04-30 09:38] LABS: ALBUMIN 2.3 g/dL (3.4-5.0)
[2020-04-30 12:48] VITALS: BP 150/86
[2020-04-30 16:19] VITALS: BP 149/79
--- NOTE | 2020-04-30 17:10 | NUR ---
2ND DOSE OF REMDESIVIR STARTED AT THIS TIME, INFUSING WELL.
--- NOTE | 2020-04-30 20:00 | NUR ---
PATIENT AWAKE, ALERT, ORIENTED X4, RESTING IN BED. BREATH SOUNDS DIMINISHED, ON OXYMIZER AT 4 L. ON CONTACT AND DROPLET PRECAUTION. SALINE LOCK TO R ANTECUBITAL AREA PATENT AND INTACT. DENIES DISCOMFORT/PAIN. LBM 7/10. VOIDING FREELY WITHOUT DIFFICULTY, USES URINAL. MOVES ALL EXTREMITIES FREELY. SKIN INTACT. ON TELE #20. WILL CONTINUE TO MONITOR.
[2020-04-30 20:40] VITALS: BP 155/87
[2020-05-01 05:28] VITALS: BP 165/90
--- NOTE | 2020-05-01 06:22 | NUR ---
PATIENT RESTING IN BED. RESPIRATION EVEN AND UNLABORED, ON OXYMIZER AT 4L. ON CONTACT AND DROPLET PRECAUTION. IV SITE NO SIGN OF INFILTRATION. ASSISTED WITH NEEDS. SAFETY OBSERVED. PLACED BED IN THE LOWEST POSITION. PLACED CALL LIGHT WITHIN REACH AT ALL TIMES.
[2020-05-01 08:47] LABS: BASOPHIL % 0.4 % (0-2); PLATELET COUNT 358 x10^3mcL (130-400); RED CELL DISTRIBUTION WIDTH 13.3 % (11.5-14.5)
--- NOTE | 2020-05-01 08:50 | NUR ---
PT SEEN AT BEDSIDE. PT AOX4, RESP E/U ON 4L OXYMIZER. DRY COUGH NOTED, OTHERWISE PT DENIES SOB, O2 SAT: 93%. IV SALINE LOCK TO RAC W/ NO ERYTHEMA/EDEMA. BED IN LOWEST POSITION AND CALL LIGHT WITHIN REACH. ISO PRECAUTIONS MAINTAINED. WILL CONTINUE TO MONITOR.
[2020-05-01 08:54] LABS: CALCIUM 8.9 mg/dL (8.5-10.1); CARBON DIOXIDE 29.3 mmol/L (21-32); CREATININE SERUM 1.3 mg/dL (0.7-1.3); POTASSIUM SERUM 4.9 mmol/L (3.5-5.1)
[2020-05-01 09:09] VITALS: BP 141/83
[2020-05-01 09:46] LABS: BILIRUBIN DIRECT 0.09 mg/dL (0.0-0.2); BILIRUBIN TOTAL 0.27 mg/dL (0.20-1.00); TOTAL PROTEIN, SERUM 6.5 g/dL (6.4-8.2)
[2020-05-01 09:48] LABS: ALBUMIN 2.4 g/dL (3.4-5.0)
--- NOTE | 2020-05-01 12:05 | NUR ---
PT RESTING IN BED, AOX4, RESP E/U ON 4L OXYMIZER. NO ACUTE DISTRESS NOTED. BED IN LOWEST POSITION AND CALL LIGHT WITHIN REACH. WILL CONTINUE TO MONITOR.
[2020-05-01 12:29] VITALS: BP 142/82
--- NOTE | 2020-05-01 16:30 | NUR ---
2ND DOSE OF REMDESIVIR 100MG IV ADMINISTERED AT THIS TIME, INFUSING WELL.
[2020-05-01 16:38] VITALS: BP 145/83
--- NOTE | 2020-05-01 19:13 | NUR ---
EBDORSED CARE TO ISRAEL TRINIDAD. UPDATES PROVIDED, ALL QUESTIONS ANSWERED.
--- NOTE | 2020-05-01 20:20 | NUR ---
RECEIVED PT LAYING IN BED WITH HOB ELEVATED. AAOX4. ON TELE #20 READING SR WITH ELEVATED T WAVES. DENIES CHEST PAIN/CHEST PRESSURE. BREATHING IS EVEN AND UNLABORED ON 4L OXYMIZER. LUNG SOUNDS DIMINISHED. DENIES SOB. SAO2 READING 98%. VOIDS FREELY VIA URINAL. AMBULATORY. DENIES ANY PAIN. IV TO RICKEY PATENT AND INTACT. NO ERYTHEMA NOTED. BED IN LOWEST POSITION. CALL LIGHT WITHIN REACH. CONTACT AND DROPLET PRECAUTIONS IN PLACE. WILL CONTINUE TO MONITOR.
[2020-05-01 22:09] VITALS: BP 141/73
--- NOTE | 2020-05-01 22:10 | NUR ---
ROUTINE MEDICATIONS ADMINISTERED AND TOLERATED WELL. NO ACUTE DISTRESS NOTED. SAO2 READING 100% ON 4L OXYMIZER. DENIES SOB. DENIES ANY PAIN. WILL CONTINUE TO MONITOR.
--- NOTE | 2020-05-02 02:27 | NUR ---
PT RESTING COMFORTABLY. SAO2 READING 100% ON 4L OXYMIZER. NO RESP DISTRESS NOTED. WILL CONTINUE TO MONITOR.
[2020-05-02 06:10] VITALS: BP 136/67
--- NOTE | 2020-05-02 08:23 | NUR ---
PT SEEN AT BEDSIDE. PT AOX4, RESP E/U ON 4L OXYMIZER. RT AT BEDSIDE, TITRATED O2 TO 2L OXYMIZER, SUSTAINING O2 SAT 97%. NO ACUTE DISTRESS NOTED. ON TELE 20 SHOWING SR W/ ELEVATED T-WAVES, HR: 76, S1 AND S2 WNL, DENIES CHEST PAIN. IV TO RICKEY SALINE LOCKED W/ NO ERYTHEMA/EDEMA, FLUSHING WELL. BED IN LOWEST POSITION AND CALL LIGHT WITHIN REACH. WILL CONTINUE TO MONITOR.
[2020-05-02 09:02] VITALS: BP 163/83
[2020-05-02 09:20] LABS: ALBUMIN 2.2 g/dL (3.4-5.0); BILIRUBIN DIRECT 0.09 mg/dL (0.0-0.2); BILIRUBIN TOTAL 0.2 mg/dL (0.20-1.00)
--- NOTE | 2020-05-02 12:00 | NUR ---
PT RESTING IN BED, AOX4, RESP E/U ON 2L NC. NO ACUTE DISTRESS NOTED. BED IN LOWEST POSITION AND CALL LIGHT WITHIN REACH. WILL CONTINUE TO MONITOR.
[2020-05-02 12:22] VITALS: BP 147/77
--- NOTE | 2020-05-02 14:41 | NUR ---
Follow-up Nutrition Assessment: Marie MosquedaRad 217T-B Dx: Viral PNA, Suspected PNA Labs: (05/01) BH, BUN: 39H, (05/02) AST:74H, Alb:2.2L Meds: Decadron, Humulin, Hydralazine, Lantus, Lipitor, Lovenox, Norvasc, NS IV, Zofran Diet: [facility] PO intake: (04/30) D:100% (05/01) B:85% L:100% D:85% (05/02) B:85% Weights: (04/26) 88.9kg (05/02) 89kg Skin: WNL Edema: None Last BM: 04/30 Per progress note 05/02, pt is weaning 02 as tolerated, D-dimer is trending down to 366. Pt continues on Remdesivir last dose 05/03 at 1600. Titrate for possible d/c with home 02 evaluation if qualifies. Pt PO intake 91% with no GI issues. Will continue to monitor. Estimated Nutritional Needs based on adjusted body weight: 69kg Energy:1725-2070kcal/day (25-30kcal/day for maintenance) Protein:69-83g/day (1-1.2g/kg for maintenance) Fluid: 1725-2070ml/day (1ml/kcal) Nutrition Diagnosis 1. Inadequate energy intake related to poor PO intake as evidenced by average PO intake of 56%, meeting 46% estimated kcal needs and 56% of estimated protein needs (resolved). Intervention: 1. Recommend continue CCHO diet. Monitor/Evaluate Monitor/Evaluate Previous goal: PO intakes to meet at least 75% of estimated needs (met) Goal: Continued PO intakes to meet at least 75% of estimated needs Monitor: PO intake, Labs, GI function, Skin integrity, Weights. F/U in 7 days as low risk (05/09)
--- NOTE | 2020-05-02 14:42 | NUR ---
1. Recommend continue CCHO diet.
[2020-05-02 17:06] VITALS: BP 130/68
--- NOTE | 2020-05-02 18:10 | NUR ---
PT RESTING IN BED, AOX4, RESP E/U ON 3L NC. DENIES SOB AT THIS TIME, NO ACUTE DISTRESS NOTED. IV TO RICKEY PATENT/INTACT, WNL. BED IN LOWEST POSITION AND CALL LIGHT WITHIN REACH. WILL ENDORSE OT ONCOMING NURSE.
--- NOTE | 2020-05-02 19:48 | NUR ---
PT RECIEVED AAO REG RESP NO SOB ON 3L N/C SAT 96%,DIMINISHED TO IKE LOWER BASES,HOB,ABDO IS SOFT WITH ACTIVE BOWEL SOUNDS,HL TO THE RT HAND WITH THE SITE INTACT AND REDNESS TO THE LT UPPER ARM,BED IN THE LOW POSITION AND LOCKED,KEPT CLEAN AND DRY TO TOUCH AND WILL CONTINUE TO MONITOR.
[2020-05-02 20:55] VITALS: BP 150/92
[2020-05-03 05:25] VITALS: BP 143/82
--- NOTE | 2020-05-03 06:27 | NUR ---
PT HAD A RESTING NIGHT NO CHNAGE AT THIS TIME AND WILL CONTINUE TO MONITOR.
[2020-05-03 07:26] LABS: BASOPHIL % 0.1 % (0-2); PLATELET COUNT 346 x10^3mcL (130-400); RED CELL DISTRIBUTION WIDTH 13.6 % (11.5-14.5)
--- NOTE | 2020-05-03 07:50 | NUR ---
RECEIVED PT A/A/OX4 DENIES TRUJILLO. RESP EVEN AND UNLABORED WITH DIMINISHED BS BILAT. ON O2 AT 2L/MIN VIA NC WITH RT PROTOCOL. DENIES ANY CP/PRESSURE. NO EDEMA NOTED. ABD SOFT, NONTENDER WITH ACTIVE BS X4. VOIDING FREELY. CALL LIGHT IN REACH NEEDS ATTENDED TO.
[2020-05-03 07:56] LABS: CALCIUM 8.7 mg/dL (8.5-10.1); CARBON DIOXIDE 26.6 mmol/L (21-32); CREATININE SERUM 1.3 mg/dL (0.7-1.3); POTASSIUM SERUM 4.7 mmol/L (3.5-5.1)
[2020-05-03 08:13] LABS: BILIRUBIN DIRECT 0.09 mg/dL (0.0-0.2); BILIRUBIN TOTAL 0.25 mg/dL (0.20-1.00); TOTAL PROTEIN, SERUM 6.3 g/dL (6.4-8.2)
[2020-05-03 08:18] VITALS: BP 149/82
[2020-05-03 08:18] LABS: ALBUMIN 2.4 g/dL (3.4-5.0)
--- NOTE | 2020-05-03 12:30 | NUR ---
PT RESTING AT THIS TIME. DENIES ANY DISCOMFORT. CALL LIGHT IN REACH NEEDS ATTENDED TO.
[2020-05-03 13:07] VITALS: BP 133/77
[2020-05-03 16:22] VITALS: BP 138/82
--- NOTE | 2020-05-03 18:50 | NUR ---
PT RESTING AT THIS TIME. DENIES ANY DISCOMFORT. CALL LIGHT IN REACH NEEDS ATTENDED TO.
--- NOTE | 2020-05-03 20:00 | NUR ---
PT A/A/O X4. DENIES DIZZINESS AND HEADACHE. BREATH SOUNDS DIMINISHED IKE LUNGS. BREATHING EVEN AND UNLABORED ON 2L NC, SPO2 97%. DENIES CHEST PAIN AND PRESSURE. BOWEL SOUNDS ACTIVE. NO C/O N/V AND ABD PAIN. IV INTACT ON THE RIGHT UPPER ARM. MADE PT COMFORTABLE. PLACED CALL LIGHT WITH IN REACH. WILL CONTINUE TO MONITOR.
[2020-05-03 21:28] VITALS: BP 135/78
[2020-05-04 05:55] VITALS: BP 121/88
--- NOTE | 2020-05-04 06:36 | NUR ---
PT QUIET AND RESTING. NO SIGNIFICANT CHANGES NOTED THUS FAR. MADE PT COMFORTABLE. WILL ENDORSE TO THE AM NURSE ACCORDINGLY.
--- NOTE | 2020-05-04 07:40 | NUR ---
RECEIVED PT IN BED A/A/OX4 DENIES TRUJILLO. RESP EVEN AND UNLABORED WITH DIMINISHED BS BILAT. ON O2 AT 2L/MIN VIA NC WITH O2SAT 93%. PT DENIES ANY SOB/CP/PRESSURE. NO EDEMA NOTED WITH IV SL TO RICKEY. ABD SOFT, NONTENDER WITH ACTIVE BS X4. VOIDING FREELY. TOLERATING ACTIVITY BED TO CHAIR AND AMBULATING WITH O2 DRESSAGE JUDGE. CALL LIGHT IN REACH NEEDS ATTENDED TO.
[2020-05-04 08:10] LABS: BASOPHIL % 0.1 % (0-2); PLATELET COUNT 306 x10^3mcL (130-400); RED CELL DISTRIBUTION WIDTH 13.7 % (11.5-14.5)
[2020-05-04 08:12] LABS: CALCIUM 8.5 mg/dL (8.5-10.1); CARBON DIOXIDE 27.5 mmol/L (21-32); CREATININE SERUM 1.4 mg/dL (0.7-1.3); POTASSIUM SERUM 4.2 mmol/L (3.5-5.1)
--- NOTE | 2020-05-04 08:40 | NUR ---
DURING MED PASS NOTED O2SAT DROP TO 86% ON 2L/MIN VIA NC. O2 INCREASE UP TO 4L TO GET O2 SAT OF 92%. PT INSTRUCTED TO TAKE SLOW DEEP BREATHS. CALL LIGHT IN REACH NEEDS TO WILL CONT TO MONITOR.
[2020-05-04 09:08] VITALS: BP 110/62
[2020-05-04 12:30] VITALS: BP 104/68
--- NOTE | 2020-05-04 13:00 | NUR ---
PT NOTED WITH IMPROVED SATURATION O2 DROPPED TO 3L/MIN VIA NC.
[2020-05-04 16:34] VITALS: BP 134/75
--- NOTE | 2020-05-04 16:50 | NUR ---
O2 SAT NOTED 96% O2 DECREASED TO 2L/MIN. PT PROVIDED WITH PERSONAL CARE. LINEN AND GOWN CHANGED. CALL LIGHT IN REACH NEEDS ATTENDED TO.
--- NOTE | 2020-05-04 18:21 | NUR ---
PT RESTING AT THIS TIME. DENIES ANY DISCOMFORT AT THIS TIME. REMAINS ON 2L/MIN VIA NC. CALL LIGHT IN REACH NEEDS ATTENDED TO.
--- NOTE | 2020-05-04 20:00 | NUR ---
PT A/A/O X4. DENIES DIZZINESS AND HEADACHE. BREATH SOUNDS DIMINISHED IKE LUNGS. BREATHING EVEN AND UNLABORED ON 2L NC, SPO2 96%. DENIES CHEST PAIN AND PRESSURE. BOWEL SOUNDS ACTIVE. NO C/O N/V AND ABD PAIN. SCATTERED ECCYMOSIS NOTED ON IKE UPPER EXTREMITY. IV SALINE LOCK INTACT ON THE RIGHT UPPER ARM. MADE PT COMFORTABLE. PLACED CALL LIGHT WITH IN REACH. WILL CONTINUE TO MONITOR.
[2020-05-04 21:36] VITALS: BP 135/82
[2020-05-05 06:21] VITALS: BP 142/77
--- NOTE | 2020-05-05 06:40 | NUR ---
PT QUIET AND RESTING. OXYGEN WEANED DOWN FROM 2L TO 1L NASAL CANNULA. PT TOLERATED IT WELL. SPO2 SUSTAINING 98%. MADE PT COMFORTABLE. WILL ENDORSE TO THE AM NURSE ACCORDINGLY.
[2020-05-05 07:58] LABS: PLATELET COUNT 275 x10^3mcL (130-400); RED CELL DISTRIBUTION WIDTH 13.8 % (11.5-14.5)
[2020-05-05 08:07] LABS: BASOPHIL % 0 % (0-2)
[2020-05-05 08:30] LABS: CALCIUM 8.4 mg/dL (8.5-10.1); CREATININE SERUM 1.5 mg/dL (0.7-1.3); MAGNESIUM 2.2 mg/dL (1.8-2.4); PHOSPHOROUS 3.9 mg/dL (2.5-4.9); POTASSIUM SERUM 4.7 mmol/L (3.5-5.1)
[2020-05-05 08:55] VITALS: BP 154/85
--- NOTE | 2020-05-05 09:00 | NUR ---
RECEIVED PT FROM PM NURSE. PT IS AWAKE AND RESTING COMFORTABLY IN BED AT THIS TIME. A/OX4. DENIES TRUJILLO OR DIZZINESS. LUNG SOUNDS DIMINISHED BILATERALLY. BREATHING E/U ON 1L NC. TELE #20. NSR. PULSES EVEN AND PALPABLE. NO EDEMA NOTED. ACTIVE BS X4. ABD SOFT AND ROUND. DENIES N/V/D. LBM 04/30/20. VOIDS FREELY USING URINAL AT THE BEDSIDE. AMBULATORY. ECCHYMOSIS NOTED TO BUE. NO C/O PAIN AT THIS TIME. IV 20G ON RICKEY. SL. INTACT AND PATENT. FLUSHES WITH NO DIFFICULTY. BED AT THE LOWEST POSITION. CALL LIGHT WITHIN REACH. WILL CONTINUE TO MONITOR.
[2020-05-05 12:36] VITALS: BP 151/85
[2020-05-05 17:04] VITALS: BP 151/81
--- NOTE | 2020-05-05 19:15 | NUR ---
RECEIVED REPORT FROM WENDI WOOD. PT IS AAOX4 AND DENIES TRUJILLO/DIZZINESS. PT IS AUSTRIAN SPEAKING. PT ON TELE #20, NSR WITH BBB + ELEV T. PT DENIES CP/PRESSURE. PT PULSES PALPABLE AND CAP REFILL <3 SEC. PT ON LOVENOX SQ. PT HAS DIMINISHED LUNG SOUNDS ON 1L NC. PT BREATHING E/U. PT DENIES SOB OR RESP DISTRESS. PT ABD SOFT/ROUND WITH ACTIVE BS X4. PT DENIES N/V/C/D. PT VOIDS FREELY VIA URINAL. PT IS AMBULATORY. PT HAS ECCHYMOSIS NOTED TO BUE. PT IV TO RICKEY 20G PATENT/INTACT. NO S/S OF REDNESS, PAIN, OR SWELLING NOTED. ALL NEEDS MET. CALL LIGHT WITHIN REACH. BED IN LOWEST POSITION. SIDE RAILS X2 UP. DROPLET+CONTACT PRECAUTIONS MAINTAINED. WILL CONTINUE TO MONITOR.
--- NOTE | 2020-05-05 19:28 | NUR ---
CARE ENDORSED TO PM NURSE FOR CONTINUITY OF CARE. ALL QUESTIONS/CONCERNS ANSWERED.
[2020-05-05 20:49] VITALS: BP 111/59
--- NOTE | 2020-05-05 23:42 | NUR ---
PT HAS ORDER FOR CONVALESCENT PLASMA TRANSFUSION. BRENDA WOOD AT BEDSIDE FOR TRANSLATION TO INFORM PT ABOUT PROCEDURE PRIOR TO SIGNING CONSENT. PER PT, HE SAID TO CALL SON FIRST BECAUSE HE IS THE ONE THAT IS HELPING DECIDE WITH PLAN OF CARE. CALLED SON CURRY LIMA AT THIS TIME AND MADE HIM AWARE OF PLAN OF CARE FOR HIS FATHER. PER SON, HE SAID THAT THEY WILL BE REFUSING THE CONVALESCENT PLASMA, BUT HE WILL CALL HIS FATHER AT THIS TIME TO FURTHER DISCUSS. INFORMED SON TO CALL BACK TO THE NURSES' STATION TO INFORM ME OF THEIR DECISION. WILL CONTINUE TO MONITOR.
--- NOTE | 2020-05-06 00:41 | NUR ---
SON CURRY LIMA ([phone]) CALLED BACK AT THIS TIME. PER SON, HIM AND HIS FATHER WILL BE REFUSING THE CONVALESCENT PLASMA AT THIS TIME.
[2020-05-06 06:03] VITALS: BP 163/92
--- NOTE | 2020-05-06 07:17 | NUR ---
ENDORSED CARE TO WENDI RN. ALL QUESTIONS AND CONCERNS ANSWERED.
--- NOTE | 2020-05-06 07:58 | NUR ---
RECEIVED PT FROM PM ISRAEL RAM. PT IS AWAKE AND RESTING COMFORTABLY IN BED AT THIS TIME. LEBANESE SPEAKING. ABLE TO MAKE HIS NEEDS KNOWN. PT IS A/OX4. DENIES TRUJILLO OR DIZZINESS. LUNG SOUNDS DIMINISHED. BREATHING E/U ON 1L NC. DENIES SOB. TELE #20. NSR WITH BBB + ELEV. PULSES EVEN AND PALPABLE. NO EDEMA NOTED. ACTIVE BS X4. ABD SOFT AND ROUND. DENIES N/V/D. VOIDS FREELY USING URINAL BY BEDSIDE. AMBULATORY. WALKER BASELINE. ECCHYMOSIS NOTED TO BUE. NO C/O PAIN AT THIS TIME.IV 20G ON RICKEY. SL. INTACT AND PATENT. FLUSHES WITH NO DIFFICULTY. BED AT LOWEST POSITION. CALL BUTTON WITHIN REACH. DROPLET+CONTACT PRECAUTION OBSERVED AT ALL TIMES. WILL CONTINUE TO MONITOR.
[2020-05-06 09:01] VITALS: BP 163/93
[2020-05-06 09:43] LABS: PLATELET COUNT 273 x10^3mcL (130-400); RED CELL DISTRIBUTION WIDTH 13.7 % (11.5-14.5)
[2020-05-06 09:44] LABS: BASOPHIL % 2.5 % (0-2)
[2020-05-06 09:54] LABS: CALCIUM 8.3 mg/dL (8.5-10.1); CREATININE SERUM 1.4 mg/dL (0.7-1.3); POTASSIUM SERUM 4.7 mmol/L (3.5-5.1)
[2020-05-06 12:34] VITALS: BP 143/75
[2020-05-06 13:08] VITALS: BP 143/75
[2020-05-06 18:09] VITALS: BP 150/79
--- NOTE | 2020-05-06 18:39 | NUR ---
PAGED DR JORDAN REGUARDING HOME O2 EVAL BEING COMPLETED BEFORE, PER DR JORDAN WILL CANCEL HOME O2 EVAL.
--- NOTE | 2020-05-06 19:16 | NUR ---
CARE ENDORSED TO PM NURSE FOR CONTINUITY OF CARE. ALL QUESTIONS/CONCERNS ANSWERED.
--- NOTE | 2020-05-06 19:20 | NUR ---
PT RECEIVED FROM AM NURSE. PT A/O X4, PRIMARILY ARGENTINE SPEAKING, ABLE TO MAKE NEEDS KNOWN. TELE #20, NSR W/ BBB + ELEVATED T, PT DENIES ANY CP/PRESSURE. PULSES PALPABLE, NO EDEMA PRESENT. BREATHING IS EVEN AND UNLABORED ON 4L NC, PT DENIES ANY SOB, NO RESP DISTRESS NOTED. ABD SOFT AND NONDISTENDED, DENIES ANY N/V. VOIDS FREELY, URINAL AT BEDSIDE. AMBULATORY W/ STEADY GAIT. ECCHYMOSIS NOTED TO AMRITA MICHAEL. PT DENIES HAVING ANY PAIN AT THSI TIME. SL TO RICKEY, PATENT AND INTACT. NO ACUTE DISTRESS NOTED. PT IS COVID(+), DROPLET AND CONTACT PRECAUTIONS IN PLACE. BED IN LOWEST SETTING, SIDE RAILS UP X2, CALL LIGHT WITHIN REACH. WILL CONT TO MONITOR.
[2020-05-06 20:02] VITALS: BP 146/75
[2020-05-07 06:22] VITALS: BP 149/81
--- NOTE | 2020-05-07 06:34 | NUR ---
PT SLEPT WELL THROUGHOUT THE EVENING. BREATHING IS EVEN AND UNLABORED, PT TITRATED TO 2L NC, 02 SAT-100% AND PT IS TOLERATING WELL. NO ACUTE CHANGES ENCOUNTERED DURING SHIFT. ALL NEEDS MET AND ANTICIPATED. CALL LIGHT WITHIN REACH. WILL ENDORSE CARE TO AM NURSE.
--- NOTE | 2020-05-07 07:30 | NUR ---
RECEIVED REPORT FROM NIGHT RN Pt DENIES ANY SOB AT THIS ITME. RECEIVED ON 2L NC 97%. ON TELE 20 DENIES ANY CHEST PAIN OR PRESSURE. ECCHYMOSIS TO BUE. IV ON RICKEY PATENT AND INTACT NO REDNESS OR EDEMA. ALL NEEDS ATTENDED TO AT THIS TIME. BED IN LOWEST POSITION CALL LIGHTW ITHIN REACH. WILL CONTINUE TO MONITOR.
[2020-05-07 09:16] VITALS: BP 149/83
--- NOTE | 2020-05-07 09:40 | NUR ---
Lane MENDOZA AT BEDSIDE
[2020-05-07 10:57] LABS: C REACTIVE PROTEIN 0.5 mg/dL (<=0.9); CALCIUM 8.4 mg/dL (8.5-10.1); CARBON DIOXIDE 28.4 mmol/L (21-32); CREATININE SERUM 1.5 mg/dL (0.7-1.3); MAGNESIUM 2.2 mg/dL (1.8-2.4); PHOSPHOROUS 3.8 mg/dL (2.5-4.9); POTASSIUM SERUM 4.3 mmol/L (3.5-5.1)
[2020-05-07 11:19] LABS: BASOPHIL % 0.3 % (0-2); PLATELET COUNT 242 x10^3mcL (130-400); RED CELL DISTRIBUTION WIDTH 14.1 % (11.5-14.5)
--- NOTE | 2020-05-07 11:35 | NUR ---
Pt SITTING UP IN BED DENIES ANY SOB REMOVED 02 Pt AT 95% TOLERATING WELL EDUCATED Pt TO PUT BACK ON IF FEELING SOB Pt VERBALIZED UNDERSTANDING. CHEST RISE EQUAL AND UNLABORED. Pt DENIES ANY PAIN AT THIS TIME. ALL QUESTIONS AND CONCERNS ADDRESSED. BED IN LOWEST POSITION CALL LIGHT WITHIN REACH. WILL CONTINUE TO MONITOR.
[2020-05-07 14:01] VITALS: BP 131/75
--- NOTE | 2020-05-07 14:01 | NUR ---
Pt SITTING UP IN BED DENIES SOB BUT 02 88% NC BACK ON 2L 02 90% WILL CONTINUE TO MONITOR. NO S/S OF ANY DISTRESS. ALL NEEDS ATTENDED TO. BED IN LOWEST POSITION CALL LIGHT WITHIN REACH. WILL CONTINUE TO MONITOR.
[2020-05-07] MEDS ORDERED: MUCINEX600 MG PO (14:21)
[2020-05-07 15:32] VITALS: BP 131/75
--- NOTE | 2020-05-07 16:43 | NUR ---
bedside blood sugar 516 rechecked per protocol 474 administered 21 units reg insulin per sliding scale and dr jenkins made aware requested i call with results after insulin is given
--- NOTE | 2020-05-07 17:45 | NUR ---
RECHECKED BLOOD SUGAR AFTER 21 UNITS REGULAR INSULIN GIVEN [address] JORDAN AWAITING CALL BACK
[2020-05-07 18:02] VITALS: BP 147/84
--- NOTE | 2020-05-07 18:04 | NUR ---
RECEIVED TELEPHONE ORDER FROM DR Clemons FOR LANTUS 21 UNITS ONCE READ BACK AND CONFIRMED WILL CARRY OUT ORDER
--- NOTE | 2020-05-07 18:57 | NUR ---
02 TANK DELIVERED FOR Pt TO BE DISCHARGED HOME WITH. WILL ENDORSE DISCHARGE TO NIGHT RN. Pt ON 2L NC SP02 88-90% Pt DENIES ANY SOB CHEST RISE EQUAL AND UNLABORED. ALL NEEDS ATTENDED TO. SAFETY PRECAUTIONS IN PLACE. WILL ENDORSE CARE TO NIGHT RN
--- NOTE | 2020-05-07 19:15 | NUR ---
RECIEVED PT RESTING IN BED WITH NO ACUTE DISTRESS NOTED AT THIS TIME, PT IS A/OX4 NO COMPLAINTS OF TRUJILLO OR DIZZINESS, PT IS STABLE AND HAS NO COMPLAINTS OF SOB ON 2L NC, PT DENIES CHEST PAIN AT THIS TIME, IV TO THE RAC 20G CDI, NO REDNESS OR SWELLING, ALL PT NEEDS ATTENDED TO AT THIS TIME, SAFETY PRECAUTIONS IN PLACE WILL CONTINUE TO MONINTOR.
--- NOTE | 2020-05-07 20:12 | NUR ---
PT O2 HERE AND PT NOTIFIED TO CALL FAMILY MEMBER FOR [employer] MAKER HAND, DISCHARGE INSTRUCTIONS PROVIDED AND PAPERWORK GIVEN TO PT. WILL CONTINUE TO MONITOR.
--- NOTE | 2020-05-07 20:45 | NUR ---
PT DISCHARGED, FAMILY ARRIVED AT HOSPITAL TO GROUNDSKEEPING MAINTENANCE PATIENT, IV REMOVED AND TELE REMOVED, O2 SAT 93% ON 2L, VIA NC, PT HAS DISHARGE PACKET IN HAND AND BELONGINGS WITH HIM AND PT, ARMBANDS REMOVED AND PT LEFT WITH FAMILY.
== END 2020-05-07 20:56 | disposition home or self-care (01) | DRG 720 ==
LOC: ED 20:43 → DU 04-20 00:41
PROVIDERS: Emergency Medicine; Internal Medicine; Internal Medicine Infectious Disease; Student in an Organized Health Care Education/Training Program; ADMIT Family Medicine; ATTEND Family Medicine
DX: A41.89 Other specified sepsis (principal); U07.1 COVID-19; J96.01 Acute respiratory failure with hypoxia; J12.89 Other viral pneumonia; N17.0 Acute kidney failure with tubular necrosis; E44.1 Mild protein-calorie malnutrition; E78.00 Pure hypercholesterolemia, unspecified; I10 Essential (primary) hypertension; E78.5 Hyperlipidemia, unspecified; Z79.899 Other long term (current) drug therapy; E11.65 Type 2 diabetes mellitus with hyperglycemia; Z68.30 Body mass index [BMI] 30.0-30.9, adult
CPT/HCPCS: 36600; 82962; 83880; 85378; G0378; J0360; J0456; J0696; J1100; J1644; J1650; J1815; J2405; J3535; Q0092; Q9967; U0003-CS

== ENCOUNTER 2020-08-15 11:13 | Emergency (ER) | payer MEDICAID ==
[~2020-08-15] VITALS: Ht 175.3 cm; Wt 93.0 kg
[~2020-08-15 11:13] MED LIST: ATORVASTATIN CA40 M1 PO; AZITHROMYCIN250 M1; BROMPHENIRAMIN473 M2; LOSARTAN POTAS100 M1 PO; METFORMIN HCL1000 MG PO; MUCINEX600 MG PO; PROAIR HFA8.5 GM; PROMETHAZINE-D473 M1
[2020-08-15 11:23] VITALS: Ht 175.3 cm; Wt 93.0 kg
[2020-08-15 15:33] VITALS: BP 153/82
== END 2020-08-15 15:33 | disposition home or self-care (01) ==
LOC: ED 11:13
DX: G44.209 Tension-type headache, unspecified, not intractable (principal); E11.9 Type 2 diabetes mellitus without complications; E78.00 Pure hypercholesterolemia, unspecified
CPT/HCPCS: 82962; J0780; J1885